=== PATIENT | female | born 1980 | race Caucasian/White ===

== ENCOUNTER → 2019-05-11 09:08 | Outpatient (CLI) | payer OTHER, SELFPAY ==
[2019-05-11 09:31] LABS: Bacteria Urine None Seen; RBC Urine None Seen (0-5/HPF); WBC Urine None Seen (0-5/HPF)
[2019-05-11 09:56] LABS: Appearance Urine UA CLEAR; Bilirubin Urine UA NEGATIVE (NEGATIVE); Color Urine UA YELLOW; Glucose Urine UA NEGATIVE (Negative); Ketones Urine UA NEGATIVE (NEGATIVE); Leukocyte Esterase Urine UA NEGATIVE (NEGATIVE); Nitrite Urine UA NEGATIVE (Negative); Occult Blood Urine UA NEGATIVE (Negative); Protein Urine UA NEGATIVE (Negative); Specific Gravity Urine UA 1.025 (1.000-1.035); Urobilinogen Urine UA 0.2 E.U./dL (0.2)
[2019-05-11 10:03] LABS: Add Manual Diff / Slide Review NO; Basophils Absolute Auto 0 /uL (0-100); Basophils Percent Auto 0.6 % (0-2); Eosinophils Absolute Auto 100 /uL (0-450); Eosinophils Percent Auto 1.8 % (2-4); Hematocrit 44.2 % (36-46); Hemoglobin 15.1 g/dL (12.0-16.0); Lymphocytes Absolute Auto 1700 /uL (1100-4500); Lymphocytes Percent Auto 28.4 % (25-40); Mean Corpuscular HGB Conc 34.3 % (30-36); Mean Corpuscular Hemoglobin 29.2 PG (26-34); Mean Corpuscular Volume 85.2 fL (80-100); Monocytes Absolute Auto 300 /uL (0-900); Monocytes Percent Auto 5.6 % (3-14); Neutrophils Absolute Auto 3700 /uL (1500-7000); Neutrophils Percent Auto 63.6 % (50-75); Platelet Count 244 X10^3/uL (150-400); Red Blood Cell Count 5.19 X10^6/uL (4.0-5.2); Red Cell Distribution Width 12.8 % (11.6-14.8); White Blood Cell Count 5.9 X10^3/uL (4.5-11.0)
[2019-05-11 10:08] LABS: Urine Comments Microscopic Normal
[2019-05-11 10:16] LABS: HEMOLYSIS < 15 (0-50); Iron 144 ug/dL (37-170)
[2019-05-11 10:18] LABS: Cholesterol 166 mg/dL (140-199); HDL Cholesterol 49 mg/dL (40-60); LDL Cholesterol Calculated 106 mg/dL (<100); Triglycerides 53 mg/dL (35-150)
[2019-05-11 10:27] LABS: Percent Iron Saturation 50 % (15-50); Total Iron Binding Capacity 288 ug/dL (265-497); Transferrin 245 mg/dL (206-381)
[2019-05-11 10:47] LABS: TSH w/ Reflex to FT4 2.43 uIU/mL (0.47-4.68)
[2019-05-14 08:39] LABS: ANA Screen, IFA NEGATIVE (NEGATIVE)
== END ==
PROVIDERS: PCP Nurse Practitioner Family; Referring Provider Nurse Practitioner Family; Visit Provider Nurse Practitioner Family
DX: Z00.00 Encounter for general adult medical examination without abnormal findings (principal); Z13.6 Encounter for screening for cardiovascular disorders; F41.9 Anxiety disorder, unspecified; L65.9 Nonscarring hair loss, unspecified
CPT/HCPCS: 36415; 80061; 81001; 83540; 83550; 84443; 85025; 86038

== ENCOUNTER → 2020-07-01 14:50 | Outpatient (CLI) | payer OTHER, SELFPAY | PROVIDERS: PCP Nurse Practitioner Family; Visit Provider Student in an Organized Health Care Education/Training Program | DX: N34.3 Urethral syndrome, unspecified (principal) | CPT/HCPCS: 87077; 87086 ==

== ENCOUNTER → 2020-07-15 09:28 | Outpatient (CLI) | payer OTHER, SELFPAY ==
[2020-07-15 10:28] LABS: Alanine Aminotransferase 20 IU/L (<35); Albumin 4.2 g/dL (3.5-5.0); Albumin Globulin Ratio 1.4 (1.0-2.8); Alkaline Phosphatase 54 U/L (38-126); Aspartate Aminotransferase 29 IU/L (14-36); BUN Creatinine Ratio 12.8 (6-22); Bilirubin Total 0.4 mg/dL (0.2-1.3); Blood Urea Nitrogen 10 mg/dL (7-17); Calcium 9.2 mg/dL (8.4-10.2); Carbon Dioxide 27 mmol/L (22-32); Chloride 107 mmol/L (98-107); Cholesterol 167 mg/dL (140-199); Estimated Glomerular Filt Rate > 60.0 mL/min (>60); Globulin 3.1 g/dL (1.7-4.1); Glucose 87 mg/dL (70-100); HDL Cholesterol 52 mg/dL (40-60); HEMOLYSIS < 15 (0-50); LDL Cholesterol Calculated 102 mg/dL (<100); Potassium 4.4 mmol/L (3.4-5.1); Sodium 140 mmol/L (137-145); Total Protein 7.3 g/dL (6.3-8.2); Triglycerides 67 mg/dL (35-150)
== END ==
PROVIDERS: PCP Nurse Practitioner Family; Referring Provider Nurse Practitioner Family; Visit Provider Nurse Practitioner Family
DX: L65.9 Nonscarring hair loss, unspecified (principal); Z13.6 Encounter for screening for cardiovascular disorders
CPT/HCPCS: 36415; 80053; 80061

== ENCOUNTER → 2020-10-01 08:20 | Outpatient (CLI) | payer OTHER, SELFPAY ==
[2020-10-01 09:32] LABS: COVID19 -Nasal RAPID Negative (Negative)
== END ==
PROVIDERS: PCP Nurse Practitioner Family; Visit Provider Obstetrics & Gynecology
DX: Z01.812 Encounter for preprocedural laboratory examination (principal); Z20.822 Contact with and (suspected) exposure to COVID-19
CPT/HCPCS: 87635

== ENCOUNTER 2020-10-01 09:33 | Day surgery (SDC) | payer OTHER, SELFPAY ==
[2020-09-25 13:12] VITALS: BMI 30.4
[2020-10-01] VITALS (9 sets, daily range): BP systolic 106–126; BP diastolic 59–82; PULSE 58–86; RESP 10–17; TEMP 36.3–36.9; O2SAT 98–100; BMI 30.4
--- NOTE | 2020-10-01 | PATH_ITS ---
[facility] Accession Number: [id number] . 01 Material submitted: . fallopian tube - BILATERAL FALLOPIAN TUBES . 02 Diagnosis: Bilateral Fallopian Tubes, Bilateral Salpingectomy: Bilateral fallopian tube segments with no evidence of neoplasia. MRV 10/06/2020 1443 Local . 02 Electronically signed: . Alyssa Owen MD, Pathologist NPI- [id number] . 01 Gross description: . The specimen is received in formalin, labeled bilateral fallopian tubes and consists of two fallopian tubes measuring 5.8 cm in length by 0.9 cm in diameter and 7.0 cm in length by 0.9 cm in diameter. The serosa is pink-purple and smooth with multiple paratubal cysts ranging from 0.1-0.2 cm. Sectioning reveals a rios-pink mucosa and a stellate lumen measuring 0.5 cm in diameter. Can Closing Machine Operator sections are submitted. . A1-A2: [place] fallopian tube, margin (blue, en face), central cross-sections and bisected fimbria. A3-A4: Longer fallopian tube, margin (blue, en face), central cross-sections and bisected fimbria. ([id number]) /MRV 10/02/2020 1039 Local . 02 Pathologist provided ICD-10: Z30.2 . 02 CPT . 985619 Performed at: 01 [facility] [address] [facility], [place], [place] [id number] MD David Burns MD Phone: [phone] Performed at: 02 [facility] [address] [place], [place] [id number] MD Alyssa Owen MD Phone: [phone]
[2020-10-01] MEDS: LACTATED RINGERS 1,000 ML 100 ML IV (10:27)
--- NOTE | 2020-10-01 10:38 | PM.HP.1 ---
History of Present Illness History of Present Illness Date Patient Seen: 10/01/20 Time Patient Seen: 10:38 Chief complaint: SD Narrative: Patient is a 40-year-old 1 para 1 who desires permanent sterilization. She presents for a laparoscopic bilateral salpingectomy. Patient History Medical History (Updated 10/01/20 @ 10:39 by Shamika iH MD) Anxiety (~2015) Surgical History Status post delivery (08/19/03) Family & Social History Family History Brother Age: 36 Afib Hypertension Child Age: 16 ADHD (attention deficit hyperactivity disorder) Depression Anxiety Mental health problem Grandmother Age: 91 Dementia Hypertension Mother Age: 61 Hypertension Thyroid condition Grandmother Age: 89 COPD (chronic obstructive pulmonary disease) Rheumatoid arthritis Father No problems noted. Grandfather Crohn's disease Colitis Social History: household members spouse,children Tobacco & Substance use: Smoking Status Never smoker alcohol intake never Substance Use Type does not use Meds Home Medications and Allergies Home Medications Medication Instructions Recorded Confirmed Type minoxidil 2 % topical solution 1 ml TOP BID #120 ml 05/17/19 10/01/20 Rx ascorbate calcium (vitamin C) 500 500 mg PO DAILY tab 07/08/20 10/01/20 History mg tablet vitamin D 1 tab PO DAILY 07/08/20 10/01/20 History buspirone 10 mg tablet 10 mg PO BID #180 tab 09/11/20 10/01/20 Rx Allergies Allergy/AdvReac Type Severity Reaction Status Date / Time No Known Drug Allergies Allergy Verified 08/17/20 16:07 Exam Vital Signs (past 8 hours): - 10/01/20 10:20 Temperature 98.1 F Pulse Rate 81 Respiratory Rate 16 Blood Pressure 126/82 Pulse Oximetry 100 Oxygen Delivery Method Room Air Oxygen Flow Rate 0 Narrative Exam Narrative: HEENT: No thyromegaly, no anterior cervical or supraclavicular lymphadenopathy. Lungs:Clear to auscultation bilaterally, no wheezes. Cardiovascular: Regular rate and rhythm, no murmurs, rubs, or gallops. Abdomen: Well-healed Pfannenstiel scar. No hepatosplenomegaly. No masses palpable. External genitalia: Normal Vagina: Normal Cervix: Normal Bimanual exam: 6 Week size anterior uterus. Mobile Assessment & Plan Assessment & Plan narrative: Assessment: 40-year-old 1 para 1 who desires permanent sterilization Plan: Laparoscopic bilateral salpingectomy The risks, benefits, and alternatives to the procedure were explained to the patient. The risks including bleeding, infection, injury to the bowel, bladder, or ureters. She understands these risks and agrees to proceed. A full par Q was held and consent form was signed. COVID-19 COVID-19 status: Negative Result date/Date tested (Pos, Neg/Pending): 10/01/20 Time Spent With Patient Time with patient: less than 15 minutes
--- NOTE | 2020-10-01 10:40 | PM.PREOP ---
Pre-operative Note COVID-19 COVID-19 status: Negative Result date/Date tested (Pos, Neg/Pending): 10/01/20 Interval Note History & Physical reviewed/Exam performed by Physician: Yes Changes to H&P: No H&P completed within 30 days and has changed as indicated here:: 10/01/20
--- NOTE | 2020-10-01 11:19 | SUR.OPER ---
Lithotomy on padded OR bed, head on pillow, arms padded with gel pads and tucked at sides. Legs secured in padded yellow fins stirrups.
[2020-10-01] MEDS: BUPIVACAINE 0.5% (PF) VIAL 30 ML INJ (11:35)
[2020-10-01] MEDS: EPINEPHrine 1 MG/ML IV (11:36)
--- NOTE | 2020-10-01 11:43 | PM.GYNOP.1 ---
Operative Date/Time/Diagnoses Date of procedure: 10/01/20 Time of procedure: 11:44 Pre-op diagnosis: Desires permanent sterilization Post-op diagnosis: same Procedure & Clinicians Procedure: Procedures Operation Date: 10/01/20 10:45 Actual Procedure Side Surgeon p Laparoscopic Salpingectomy Bilateral Shamika Hi MD Indications: Desires permanent sterilization Surgeon: Shamika Hi Anesthesia Type: General and Local Operative Notes Findings: 6 week size anteverted uterus Normal tubes and ovaries Normal liver and gallbladder Normal appendix Closure Type: primary Specimen(s): left tube and right tube Estimated blood loss (mL): 5 Blood products transfused: none Procedure in detail: After informed consent was obtained, the patient was taken to the operating room where she was placed in the dorsal supine position. After adequate general endotracheal anesthesia was achieved, she was placed in the dorsal lithotomy position, and prepped and draped in the usual sterile fashion. A time-out was performed. A bivalve speculum was placed into the vagina and the anterior lip of the cervix grasped with a single-tooth tenaculum. The cervical os was sequentially dilated until the Zumi uterine manipulator could pass easily into the endometrial cavity. The single-tooth tenaculum was removed from the anterior lip of the cervix. The bivalve speculum was removed from the vagina. Attention was then turned to the abdomen where 6 cc of 0.5% Marcaine with epinephrine were injected in the umbilical fold. A 5 mm incision was made. The Veress needle was placed into the peritoneal cavity, and its placement confirmed by aspiration and drop test. The abdominal cavity was insufflated with 4 L of CO2. The Veress needle was removed, and a 5 mm trocar was placed without difficulty. Two other incisions were made 4 cm lateral to the midline after 6 cc of 0.5% Marcaine with epinephrine were injected. Two 5 mm trocars were placed under direct visualization. The right tube was grasped with an atraumatic grasper. Using the PlasmaKinetic was settings of 40 w, the mesosalpinx was cauterized and cut all the way down to the cornua of the uterus. The tube was amputated at the cornua. All of this was repeated on the patient's left side. Hemostasis was achieved. The tubes were removed from the abdomen through the 5 mm trocars. The instruments were removed from the abdomen. The CO2 was allowed to escape. The trocars were removed from the abdomen. The incisions were repaired with 4-0 Biosyn in a subcuticular fashion. Steri-Strips and Allevyn dressings were placed. The Zumi uterine manipulator was removed from the uterus. Sponge, lap, and instrument counts were correct x2. The patient tolerated the procedure well, and was taken to PACU in stable condition. Complications: none Post-operative Condition: stable Disposition: PACU Plan for aftercare: Home after recovery
--- NOTE | 2020-10-01 11:58 | SUR.PHASEI ---
Patient admitted to PACU with Dr Huffman and Iman FORTE. SBAR report at bedside. Pt opened eyes to voice.
[2020-10-01] MEDS: ACETAMINOPHEN 325 MG TABLET 650 MG PO (12:05)
--- NOTE | 2020-10-01 12:19 | SUR.PHASEI ---
Pt awake alert. Tolerating juice. Transferred in bed to OPD with Caryl RN. Dressing and Felipa pad viewed with Caryl prior to transfer.
--- NOTE | 2020-10-01 12:39 | SUR.PHASEII ---
Pt ready to go, assessment unchanged, dressed and left unit in stable condition.
== END 2020-10-01 12:40 | disposition home or self-care (01) ==
PROVIDERS: PCP Nurse Practitioner Family; Referring Provider Obstetrics & Gynecology; Visit Provider Obstetrics & Gynecology
PROC: 0UT74ZZ Resection of Bilateral Fallopian Tubes, Percutaneous Endoscopic Approach (ICD-10-PCS; CPT 58661; principal; 2020-10-01 10:45)
DX: Z30.2 Encounter for sterilization (principal); F41.9 Anxiety disorder, unspecified; Z20.822 Contact with and (suspected) exposure to COVID-19
CPT/HCPCS: 58661; 87635; J0171; J1100; J1885; J2250; J2405; J2704; J3010

== ENCOUNTER → 2021-08-06 16:01 | Outpatient (CLI) | payer OTHER, SELFPAY ==
[2021-08-06 18:00] LABS: Add Manual Diff / Slide Review NO; Basophils Absolute Auto 0 /uL (0-100); Basophils Percent Auto 0.4 % (0-2); Eosinophils Absolute Auto 100 /uL (0-450); Eosinophils Percent Auto 1.4 % (2-4); Hematocrit 42.1 % (36-46); Hemoglobin 14.6 g/dL (12.0-16.0); Lymphocytes Absolute Auto 1800 /uL (1100-4500); Lymphocytes Percent Auto 21.8 % (25-40); Mean Corpuscular HGB Conc 34.6 % (30-36); Mean Corpuscular Hemoglobin 29.3 PG (26-34); Mean Corpuscular Volume 84.6 fL (80-100); Monocytes Absolute Auto 500 /uL (0-900); Neutrophils Absolute Auto 5700 /uL (1500-7000); Neutrophils Percent Auto 70.4 % (50-75); Platelet Count 234 X10^3/uL (150-400); Red Blood Cell Count 4.97 X10^6/uL (4.0-5.2); Red Cell Distribution Width 12.6 % (11.6-14.8); White Blood Cell Count 8.1 X10^3/uL (4.5-11.0)
[2021-08-06 18:22] LABS: Erythrocyte Sedimentation Rate 1 MM/HR (0-20)
[2021-08-06 18:38] LABS: Alanine Aminotransferase 22 IU/L (<35); Albumin 4.7 g/dL (3.5-5.0); Albumin Globulin Ratio 1.5 (1.0-2.8); Alkaline Phosphatase 54 U/L (38-126); Aspartate Aminotransferase 30 IU/L (14-36); BUN Creatinine Ratio 17.8 (6-22); Bilirubin Total 0.3 mg/dL (0.2-1.3); Blood Urea Nitrogen 13 mg/dL (7-17); C-Reactive Protein Quant < 0.5 mg/dL (<1.0); Calcium 9.2 mg/dL (8.4-10.2); Carbon Dioxide 25 mmol/L (22-32); Chloride 107 mmol/L (98-107); Estimated Glomerular Filt Rate > 60 mL/min (>60); Globulin 3.1 g/dL (1.7-4.1); Glucose 87 mg/dL (70-100); HEMOLYSIS < 15 (0-50); Potassium 4.2 mmol/L (3.4-5.1); Sodium 139 mmol/L (137-145); Total Protein 7.8 g/dL (6.3-8.2)
[2021-08-06 19:03] LABS: TSH w/ Reflex to FT4 2.81 uIU/mL (0.47-4.68)
== END ==
PROVIDERS: PCP Family Medicine; Referring Provider Family Medicine; Visit Provider Family Medicine
DX: F41.9 Anxiety disorder, unspecified (principal); L65.9 Nonscarring hair loss, unspecified; R30.0 Dysuria
CPT/HCPCS: 36415; 80053; 84443; 85025; 85651; 86140

== ENCOUNTER → 2022-12-20 10:10 | Outpatient (CLI) | payer OTHER, SELFPAY ==
[2022-12-20 11:18] LABS: Hematocrit 40.6 % (36-46); Hemoglobin 14.1 g/dL (12.0-16.0); Mean Corpuscular HGB Conc 34.8 % (30-36); Mean Corpuscular Hemoglobin 29.2 PG (26-34); Mean Corpuscular Volume 83.9 fL (80-100); Platelet Count 234 X10^3/uL (150-400); Red Blood Cell Count 4.84 X10^6/uL (4.0-5.2); Red Cell Distribution Width 12.9 % (11.6-14.8); White Blood Cell Count 5.6 X10^3/uL (4.5-11.0)
[2022-12-20 11:27] LABS: Alanine Aminotransferase 19 IU/L (<35); Albumin 4.2 g/dL (3.5-5.0); Albumin Globulin Ratio 1.3 (1.0-2.8); Alkaline Phosphatase 52 U/L (38-126); Aspartate Aminotransferase 23 IU/L (14-36); BUN Creatinine Ratio 15.1 (6-22); Bilirubin Total 0.7 mg/dL (0.2-1.3); Blood Urea Nitrogen 11 mg/dL (7-17); Calcium 9.5 mg/dL (8.4-10.2); Carbon Dioxide 22 mmol/L (22-32); Chloride 108 mmol/L (98-107); Cholesterol 153 mg/dL (140-199); Estimated Glomerular Filt Rate > 60 mL/min (>60); Globulin 3.3 g/dL (1.7-4.1); Glucose 89 mg/dL (70-100); HDL Cholesterol 48 mg/dL (40-60); HEMOLYSIS < 15 (0-50); LDL Cholesterol Calculated 92 mg/dL (<100); Potassium 4.6 mmol/L (3.4-5.1); Sodium 138 mmol/L (137-145); Total Protein 7.5 g/dL (6.3-8.2); Triglycerides 63 mg/dL (35-150)
[2022-12-20 11:59] LABS: TSH w/ Reflex to FT4 0.79 uIU/mL (0.47-4.68)
== END ==
PROVIDERS: PCP Registered Nurse Diabetes Educator; Referring Provider Registered Nurse Diabetes Educator; Visit Provider Registered Nurse Diabetes Educator
DX: L65.9 Nonscarring hair loss, unspecified (principal); F41.9 Anxiety disorder, unspecified; Z79.899 Other long term (current) drug therapy; Z13.220 Encounter for screening for lipoid disorders; Z13.29 Encounter for screening for other suspected endocrine disorder
CPT/HCPCS: 36415; 80053; 80061; 84443; 85027